=== PATIENT | female | born 1975 | race Caucasian/White ===

== ENCOUNTER 2020-05-04 20:14 | Inpatient (IN) | payer OTHER ==
[~2020-05-04] VITALS: Ht 157.5 cm; Wt 61.7 kg
[~2020-05-04 20:14] MED LIST: QUETIAPINE FUM400 MG PO
[2020-05-05] MEDS ORDERED: HYDROCODON-ACE1 EAC4 PO (01:07)
[2020-05-05] MEDS ORDERED: ZANAFLEX4 MG PO (01:09)
[2020-05-05] MEDS ORDERED: CLONIDINE HCL0.3 MG PO (01:09)
[2020-05-05] MEDS ORDERED: GABAPENTIN300 MG PO (01:10)
[2020-05-05] MEDS ORDERED: VENLAFAXINE HC150 MG PO (01:11)
[2020-05-05] MEDS ORDERED: MIRAPEX0.75 MG PO (01:15)
[2020-05-05] MEDS ORDERED: EFFEXOR XR150 MG PO (01:16)
[2020-05-05 08:41] LABS: HEMOGLOBIN 12.9 gm/dl (12.3-15.3); RED BLOOD COUNT 4.53 M/UL (4.00-5.10); WHITE BLOOD COUNT 10.9 K/UL (4.5-11.0)
[2020-05-05 09:02] LABS: BUN/CREATININE RATIO 13 (0-10)
[2020-05-06 03:46] LABS: HEMOGLOBIN 9.7 gm/dl (12.3-15.3); RED BLOOD COUNT 3.48 M/UL (4.00-5.10); WHITE BLOOD COUNT 5.7 K/UL (4.5-11.0)
[2020-05-06 04:01] LABS: BUN/CREATININE RATIO 12 (0-10)
[2020-05-07 02:34] LABS: BUN/CREATININE RATIO 14 (0-10)
[2020-05-08 02:43] LABS: HEMOGLOBIN 11.3 gm/dl (12.3-15.3); WHITE BLOOD COUNT 6.4 K/UL (4.5-11.0)
[2020-05-08 02:47] LABS: RED BLOOD COUNT 4.09 M/UL (4.00-5.10)
[2020-05-08 03:29] LABS: BUN/CREATININE RATIO 18 (0-10)
--- NOTE | 2020-05-09 23:00 | NUR ---
Patient had a bowel movement, brown in color,watery consistency. Absence of nausea/vomiting. Patient requesting diet and food to eat at this time.
[2020-05-10] MEDS ORDERED: DOCUSATE SODIU100 MG PO (13:01)
[2020-05-10] MEDS ORDERED: LOPRESSOR 25 MG25 MG PO (13:01)
[2020-05-10] MEDS ORDERED: CLONIDINE HCL0.3 MG PO (13:01)
== END 2020-05-10 17:00 | disposition home or self-care (01) | DRG 287 ==
LOC: PROG CARE 23:44 → MED SURG 4 05-06 16:10 → PROG CARE 05-06 16:10 → MED SURG 4 05-08 14:49
PROVIDERS: Internal Medicine; ADMIT Internal Medicine
PROC: B2111ZZ Fluoroscopy of Multiple Coronary Arteries using Low Osmolar Contrast (ICD-10-PCS; principal; 2020-05-06)
DX: I47.2 Ventricular tachycardia (principal); I20.9 Angina pectoris, unspecified; K59.00 Constipation, unspecified; D64.9 Anemia, unspecified; F31.9 Bipolar disorder, unspecified; I10 Essential (primary) hypertension; E66.9 Obesity, unspecified; B19.20 Unspecified viral hepatitis C without hepatic coma; Z98.84 Bariatric surgery status; Z90.49 Acquired absence of other specified parts of digestive tract; Z90.710 Acquired absence of both cervix and uterus; Z98.51 Tubal ligation status; Z88.2 Allergy status to sulfonamides; Z88.8 Allergy status to other drugs, medicaments and biological substances; Z82.49 Family history of ischemic heart disease and other diseases of the circulatory system; Z80.8 Family history of malignant neoplasm of other organs or systems; E87.6 Hypokalemia; M06.9 Rheumatoid arthritis, unspecified; T50.995A Adverse effect of other drugs, medicaments and biological substances, initial encounter; R10.9 Unspecified abdominal pain
CPT/HCPCS: ECHO; 36415; 74018; 74019; 80048; 80053; 80307; 82550; 82553; 83690; 83735; 84132; 84439; 84443; 84484; 85025; 93005; 93270; 93306; 94760; 96365; 96366; 96367; 96372; 96375; 96376; 99152; C1769; G0378; G0379; J0461; J1644; J1650; J2250; J2270; J2405; J3010; J3475; J3480; J7030; J7040; Q9967